=== PATIENT | female | born 1960 | race Caucasian/White ===

== ENCOUNTER 2024-10-17 17:15 | Emergency (ER) | payer MEDICAID ==
[~2024-10-17] VITALS: Ht 165.1 cm; Wt 86.6 kg
[2024-10-17 20:37] VITALS: BP 132/78; TEMP 97.9; O2SAT 99
== END 2024-10-17 20:38 | disposition home or self-care (01) ==
LOC: ER 17:28
DX: S00.03XA Contusion of scalp, initial encounter (principal); I10 Essential (primary) hypertension; W01.0XXA Fall on same level from slipping, tripping and stumbling without subsequent striking against object, initial encounter; Y93.89 Activity, other specified; Y92.9 Unspecified place or not applicable; Y99.8 Other external cause status
CPT/HCPCS: 70450-TC

== ENCOUNTER 2024-10-25 19:03 | Emergency (ER) | payer MEDICAID ==
[~2024-10-25] VITALS: Ht 165.1 cm; Wt 87.1 kg
[2024-10-25] MEDS ORDERED: MECLIZINE HCL 25 MG TABLET ONE (20:05)
[2024-10-25] MEDS ORDERED: IBUPROFEN 600 MG TABLET ONE (20:05)
[2024-10-25] MEDS: MECLIZINE HCL 25 MG TABLET PO ONE (20:09)
[2024-10-25] MEDS: IBUPROFEN 600 MG TABLET PO ONE (20:09)
[2024-10-25 20:57] LABS: APPEARANCE,URINE CLEAR (CLEAR); BLOOD, URINE NEGATIVE Ery/uL (NEGATIVE); LEUKOCYTE ESTERASE ,URINE NEGATIVE (NEGATIVE); NITRITE, URINE NEGATIVE (NEGATIVE); UGLUCOSE NEGATIVE (NEGATIVE)
[2024-10-25] MEDS ORDERED: MECL-159 PO (21:31)
[2024-10-25] MEDS ORDERED: IBUP-1490 PO (21:31)
[2024-10-25 22:03] VITALS: BP 136/81; TEMP 98.1; O2SAT 94
== END 2024-10-25 22:04 | disposition home or self-care (01) ==
LOC: ER 19:07
DX: S39.012A Strain of muscle, fascia and tendon of lower back, initial encounter (principal); S09.8XXA Other specified injuries of head, initial encounter; R42 Dizziness and giddiness; I10 Essential (primary) hypertension; W01.0XXA Fall on same level from slipping, tripping and stumbling without subsequent striking against object, initial encounter; Y93.89 Activity, other specified; Y92.89 Other specified places as the place of occurrence of the external cause; Y99.8 Other external cause status
CPT/HCPCS: 99284; 70450; 93005; 72131; 81003; 82962; J8597